=== PATIENT | female | born 2000 | race Two or more races ===

== ENCOUNTER 2025-02-06 15:09 | Emergency (ER) | payer OTHER ==
[~2025-02-06] VITALS: Ht 149.9 cm; Wt 72.6 kg
[2025-02-06] MEDS ORDERED: PEPCID AC20 MG PO (15:51)
[2025-02-06] MEDS ORDERED: ZYRTEC10 M3 PO (15:52)
[2025-02-06] MEDS ORDERED: [UNRECOGNIZED DRUG - OTHER] PO (15:52)
[2025-02-06 15:53] VITALS: BP 127/84; O2SAT 98
[2025-02-06] MEDS ORDERED: KETOROLAC TROMETHAMINE 60 MG VIAL IM STA (18:42)
== END 2025-02-06 18:53 | disposition home or self-care (01) ==
LOC: ER 15:09
DX: R10.2 Pelvic and perineal pain (principal); R10.9 Unspecified abdominal pain